=== PATIENT | female | born 1965 | race Caucasian/White ===

== ENCOUNTER 2018-04-17 08:35 | Emergency (ER) | payer OTHER ==
[~2018-04-17] VITALS: Ht 165.1 cm; Wt 81.2 kg
[2018-04-17] MEDS ORDERED: WELLBUTRIN SR100 MG PO (08:49)
[2018-04-17] MEDS ORDERED: COZAAR25 MG PO (08:49)
[2018-04-17] MEDS ORDERED: CELEBREX200MG PO (10:46)
[2018-04-17] MEDS ORDERED: SKELAXIN800 MG PO (10:46)
== END 2018-04-17 10:54 | disposition home or self-care (01) ==
LOC: ER 08:35
DX: S33.5XXA Sprain of ligaments of lumbar spine, initial encounter (principal); X50.0XXA Overexertion from strenuous movement or load, initial encounter; Y93.B2 Activity, push-ups, pull-ups, sit-ups; Y92.89 Other specified places as the place of occurrence of the external cause; Y99.8 Other external cause status